=== PATIENT | female | born 1985 | race Caucasian/White ===

== ENCOUNTER 2017-01-03 09:36 | Emergency (ER) | payer OTHER ==
[~2017-01-03] VITALS: Ht 162.6 cm; Wt 60.1 kg
[2017-01-03 09:42] VITALS: TEMP 37.1; Ht 162.6 cm; Wt 60.1 kg
[2017-01-03] MEDS ORDERED: CIPROFLOXACIN 400MG / 200ML D5W IV STA (09:56)
[2017-01-03] MEDS ORDERED: SODIUM CHLORIDE 0.9% 1000ML 1,000 ML IV ONE (10:00)
[2017-01-03] MEDS: ONDANSETRON INJ 2 MG/ML 2 ML VIAL IV PRN ×2 (10:15→11:35)
[2017-01-03] MEDS: MoRPHine SULFATE 10 MG/ML CARP/VIAL IV PRN ×2 (10:17→11:36)
--- NOTE | 2017-01-03 10:17 | EMERGENCY ROOM VISIT NOTE ---
History Report prepared by Tenisha: Hu White Under the Supervision of: Dr. Pio Chang M.D. First contact with patient: 09:51 Chief Complaint: FEVER Stated Complaint: FEVER, BACK/FLANK PAIN History of Present Illness The patient is a 31 year old female who presents to the Emergency Room with complaints of a fever that began yesterday. When taking her temperature today, the patient states it was 101.3 F. She notes that it felt much higher last night. She has a past medical history of asymptomatic UTI's that only show symptoms after they progress to pyelonephritis. Along with the fever, she is experiencing generalized abdominal pain, bilateral flank pain, and foul smelling urine. She presented to [facility] this morning, but she was told to go to the ER because her abdominal pain was "abnormal." She has been constipated for the past two days, but notes that this tends to be normal for her. Her menstrual cycle ended yesterday. She denies any headaches or rashes. She has a past medical history of hypertension Source of History: patient Onset: yesterday Position: other (Global) Symptom Intensity: 101.3 F Quality: other (Fever) Timing: waxes/wanes Associated Symptoms: + abdominal pain (RLQ/LLQ), + back pain (Bilateral flank pain), + urinary symptoms (Foul smelling urine), No headache, No rash Review of Systems All systems have been listed, reviewed, and are negative other than those previously mentioned. Please see Additional Medical History Sheet. Past Medical & Surgical Medical Problems: (1) HTN (hypertension) (2) Pyelonephritis Surgical Problems: (1) H/O LEEP Family History Cancer Hypertension Social History Smoking Status: Never Smoker Smokeless Tobacco Use: No Alcohol Use: none Drug Use: none Marital Status: Housing Status: lives with family Current/Historical Medications Scheduled Ciprofloxacin Hcl (Cipro), 1 TAB PO BID Levothyroxine Sodium (Synthroid), 25 MCG PO DAILY Lisinopril (Zestril), 5 MG PO DAILY Scheduled PRN Hydrocodon/Acetaminophen 5MG/300MG (Vicodin (5MG/300MG)), 1-2 TAB PO Q4H PRN for Pain Allergies Coded Allergies: No Known Allergies (Unverified , 01/03/17) Physical Exam Vital Signs Date Time Temp Pulse Resp B/P (MAP) Pulse Ox O2 Delivery O2 Flow Rate FiO2 01/03/17 13:19 93 16 129/86 97 01/03/17 11:38 97 14 117/79 98 Room Air 01/03/17 09:42 37.1 100 18 122/91 98 Room Air Physical Exam GENERAL: Patient awake, alert, oriented x 3. Patient appears to be in mild to moderate distress. Patient follows commands. Patient does not appear toxic. Patient is adequately hydrated and well-nourished. SKIN: No erythema, pallor, cyanosis or rash HEENT: Normal head, pupils equal, reactive to light and accommodation. LUNGS: Clear to auscultation. No wheezes, no rales, no rhonchi. HEART: No murmurs. No gallops. No rubs ABDOMEN: Generalized tenderness that is most prominent over the left CVA area. No masses, no rebound, no hepatomegaly or splenomegaly. EXTREMITIES: No signs of trauma. No pedal or pretibial edema. No calf or thigh tenderness. NEUROLOGIC: Cranial nerves II-XII within normal limits. No gross motor sensory function deficits. Medical Decision & Procedures ER Provider Diagnostic Interpretation: Radiology results as stated below per my review and radiologist interpretation: ABDOMEN AND PELVIS CT WITHOUT CONTRAST CT DOSE: 578.40 mGy.cm HISTORY: left flank pain TECHNIQUE: Multiaxial CT images of the abdomen and pelvis were performed without the use of intravenous and oral contrast according to the standard department stone protocol. A dose lowering technique was utilized adhering to the principles of ALARA. COMPARISON STUDY: None. FINDINGS: The lung bases are clear. No fractures within the visualized osseous structures. The unenhanced liver, gallbladder, spleen, pancreas, and adrenal glands are within normal limits. Normal right kidney. Mild left perinephric fat stranding/edema. Mild fullness within the left renal collecting system and left ureter without paris hydronephrosis. No renal or ureteral stones identified. No retroperitoneal lymphadenopathy. No bowel wall thickening or obstruction. The bladder, uterus, and bilateral adnexa are unremarkable. Normal appendix. IMPRESSION: 1. Mild left perinephric fat stranding/edema. This favors a pyelonephritis. There is mild fullness within the left renal collecting system without paris hydronephrosis. Therefore, this could also represent a recently passed stone. Recommend correlation with urinalysis. 2. No renal or ureteral calculi. Electronically signed by: Jackson Frnaces M.D. 01/03/2017 12:09 PM Dictated Date/Time: 01/03/2017 12:02 PM Laboratory Results 01/03/17 10:15 Red Blood Count 4.72, Mean Corpuscular Volume 88.6, Mean Corpuscular Hemoglobin 29.2, Mean Corpuscular Hemoglobin Concent 33.0, Mean Platelet Volume 10.8, Neutrophils (%) (Auto) 81.3, Lymphocytes (%) (Auto) 8.5, Monocytes (%) (Auto) 10.0, Eosinophils (%) (Auto) 0.0, Basophils (%) (Auto) 0.1, Neutrophils # (Auto ) 9.14, Lymphocytes # (Auto) 0.96, Monocytes # (Auto) 1.12, Eosinophils # (Auto ) 0.00, Basophils # (Auto) 0.01 01/03/17 10:15 Test 01/03/17 10:15 01/03/17 10:30 White Blood Count 11.24 K/uL (4.8-10.8) Red Blood Count 4.72 M/uL (4.2-5.4) Hemoglobin 13.8 g/dL (12.0-16.0) Hematocrit 41.8 % (37-47) Mean Corpuscular Volume 88.6 fL (80-100) Mean Corpuscular Hemoglobin 29.2 pg (25-34) Mean Corpuscular Hemoglobin Concent 33.0 g/dl (32-36) Platelet Count 209 K/uL (130-400) Mean Platelet Volume 10.8 fL (7.4-10.4) Neutrophils (%) (Auto) 81.3 % Lymphocytes (%) (Auto) 8.5 % Monocytes (%) (Auto) 10.0 % Eosinophils (%) (Auto) 0.0 % Basophils (%) (Auto) 0.1 % Neutrophils # (Auto) 9.14 K/uL (1.4-6.5) Lymphocytes # (Auto) 0.96 K/uL (1.2-3.4) Monocytes # (Auto) 1.12 K/uL (0.11-0.59) Eosinophils # (Auto) 0.00 K/uL (0-0.5) Basophils # (Auto) 0.01 K/uL (0-0.2) RDW Standard Deviation 42.5 fL (36.4-46.3) RDW Coefficient of Variation 12.9 % (11.5-14.5) Immature Granulocyte % (Auto) 0.1 % Immature Granulocyte # (Auto) 0.01 K/uL (0.00-0.02) Anion Gap 10.0 mmol/L (3-11) Est Creatinine Clear Calc Drug Dose 103.9 ml/min Estimated GFR () 136.3 Estimated GFR (Non- 117.6 BUN/Creatinine Ratio 11.3 (10-20) Calcium Level 8.9 mg/dl (8.5-10.1) Urine Color YELLOW Urine Appearance CLEAR (CLEAR) Urine pH 6.0 (4.5-7.5) Urine Specific [place] 1.009 (1.000-1.030) Urine Protein NEG (NEG) Urine Glucose (UA) NEG (NEG) Urine Ketones 1+ (NEG) Urine Occult Blood NEG (NEG) Urine Nitrite NEG (NEG) Urine Bilirubin NEG (NEG) Urine Urobilinogen NEG (NEG) Urine Leukocyte Esterase NEG (NEG) Laboratory results as stated above per my review. Medications Administered Medications (Trade) Dose Ordered Sig/Sukhdeep Route Start Time Stop Time Status Last Admin Dose Admin Morphine Sulfate (MoRPHine SULFATE INJ) 6 mg Q1H PRN IV 01/03/17 10:00 01/03/17 13:34 DC 01/03/17 11:36 6 MG Ondansetron HCl (Zofran Inj) 4 mg Q1HWA PRN IV 01/03/17 10:00 01/03/17 13:34 DC 01/03/17 11:35 4 MG Ciprofloxacin/ Dextrose (Cipro / D5W) 400 mg NOW STAT IV 01/03/17 09:56 01/03/17 10:02 DC 01/03/17 10:30 400 MG Sodium Chloride 1,000 ml @ 1,000 mls/hr Q1H ONCE IV 01/03/17 10:00 01/03/17 10:59 DC 01/03/17 10:19 1,000 MLS/HR ED Course 0951: Past medical records reviewed. The patient was evaluated in room A9B. A complete history and physical examination was performed. 0956: Ordered Cipro / D5W 400 mg IV 1000: Ordered Sodium Chloride 1000 ml @ 1000 mls/hr IV, Zofran Inj 4 mg IV, Morphine Sulfate 6 mg IV 1105: I reevaluated the patient at this time. We will be giving her a CT scan. 1316: Upon reevaluation, the patient appeared to have improvement of her symptoms. I discussed today's findings with her. She verbalized agreement of the treatment plan. She was discharged home. Medical Decision Differential diagnoses considered include UTI, pyelonephritis, kidney stones, and sepsis. The patient is here with urinary symptoms similar to what she has had in the past with pyelonephritis. The patient had a urinalysis performed this morning at an urgent care center revealing blood, protein, ketones and moderate leukocyte esterase. The patient did drink a couple bottles of water just prior to arrival here. Urinalysis here shows only ketones. Specific gravity is much less. In light of her history and clinical findings she was started on ciprofloxacin. CT was added when the diagnosis became unclear. White count is slightly elevated. CT is most consistent with pyelonephritis. No stone was found. The patient will be sent home on Cipro and Vicodin. The patient was encouraged to continue pushing fluids. [place] Drug Monitoring Program Search Results: patient reviewed within database, no issues identified Medication Reconcilliation Current Medication List: was personally reviewed by me Blood Pressure Screening Patient's blood pressure: Normal blood pressure Blood pressure disposition: Did not require urgent referral Impression Primary Impression: Acute pyelonephritis Scribe Attestation The scribe's documentation has been prepared under my direction and personally reviewed by me in its entirety. I confirm that the note above accurately reflects all work, treatment, procedures, and medical decision making performed by me. Departure Information Dispostion Home / Self-Care Prescriptions Hydrocodon/Acetaminophen 5MG/300MG (VICODIN (5MG/300MG)) 1 Tab Tab 1-2 TAB PO Q4H Y for Pain, #12 TAB Prov: Pio Chang M.D. 01/03/17 Ciprofloxacin Hcl (CIPRO) 500 Mg Tab 1 TAB PO BID for 10 Days, #20 TAB Prov: Pio Chang M.D. 01/03/17 Referrals No Doctor, Assigned (PCP) Forms HOME CARE DOCUMENTATION FORM, IMPORTANT VISIT INFORMATION Patient Instructions Ciprofloxacin tablets, My [facility], Pyelonephritis Dc Additional Instructions One Cipro twice a day for 10 days. 1-2 Vicodin every 4 hours as needed for moderate to severe pain. Do not drive or operate machinery while taking Vicodin. Drink extra fluids. Have your urine rechecked within the next 2 weeks.
[2017-01-03] MEDS ORDERED: LEVO25TA PO (10:19)
[2017-01-03] MEDS ORDERED: LISI-729 PO (10:19)
[2017-01-03 10:32] LABS: BASO % 0.1 %; BASO ABS # 0.01 K/uL (0-0.2); COMPLETE YES; HEMATOCRIT 41.8 % (37-47); IG% 0.1 %; LYMPH % 8.5 %; LYMPH ABS # 0.96 K/uL (1.2-3.4); MEAN CELL VOLUME 88.6 fL (80-100); MEAN CORPUSCULAR HEMOGLOBIN 29.2 pg (25-34); MEAN PLATELET VOLUME 10.8 fL (7.4-10.4); NEUT % 81.3 %; PLATELET COUNT 209 K/uL (130-400); RED BLOOD COUNT 4.72 M/uL (4.2-5.4); WHITE BLOOD COUNT 11.24 K/uL (4.8-10.8)
[2017-01-03 10:50] LABS: BUN/CREATININE RATIO 11.3 (10-20); CALCIUM 8.9 mg/dl (8.5-10.1); CREATININE 0.69 mg/dl (0.60-1.20); POTASSIUM 3.5 mmol/L (3.5-5.1)
[2017-01-03 10:53] LABS: URINE APPEARANCE CLEAR (CLEAR); URINE BILIRUBIN NEG (NEG); URINE COLOR YELLOW; URINE NITRITE NEG (NEG); URINE SPECIFIC GRAVITY 1.009 (1.000-1.030); UROBILINOGEN NEG (NEG); ZZUR CULT IF INDIC CLEAN CATCH NO
[2017-01-03 10:56] LABS: MANUAL MICROSCOPIC REQUIRED? NO; REVIEW REQ? NO
--- NOTE | 2017-01-03 12:10 | DIAGNOSTIC IMAGING REPORT ---
ABDOMEN AND PELVIS CT WITHOUT CONTRAST CT DOSE: 578.40 mGy.cm HISTORY: left flank pain TECHNIQUE: Multiaxial CT images of the abdomen and pelvis were performed without the use of intravenous and oral contrast according to the standard department stone protocol. A dose lowering technique was utilized adhering to the principles of ALARA. COMPARISON STUDY: None. FINDINGS: The lung bases are clear. No fractures within the visualized osseous structures. The unenhanced liver, gallbladder, spleen, pancreas, and adrenal glands are within normal limits. Normal right kidney. Mild left perinephric fat stranding/edema. Mild fullness within the left renal collecting system and left ureter without paris hydronephrosis. No renal or ureteral stones identified. No retroperitoneal lymphadenopathy. No bowel wall thickening or obstruction. The bladder, uterus, and bilateral adnexa are unremarkable. Normal appendix. IMPRESSION: 1. Mild left perinephric fat stranding/edema. This favors a pyelonephritis. There is mild fullness within the left renal collecting system without paris hydronephrosis. Therefore, this could also represent a recently passed stone. Recommend correlation with urinalysis. 2. No renal or ureteral calculi. Electronically signed by: Jackson Frances M.D. 01/03/2017 12:09 PM Dictated Date/Time: 01/03/2017 12:02 PM
[2017-01-03] MEDS ORDERED: HYDR-3419 PO (13:08)
[2017-01-03] MEDS ORDERED: CIPR-255 PO (13:08)
[2017-01-03 13:19] VITALS: BP 129/86; PULSE 93; O2SAT 97
== END 2017-01-03 13:19 | disposition home or self-care (01) ==
LOC: C.EDB 09:38 → C.EDA 13:19
DX: N10 Acute pyelonephritis (principal); I10 Essential (primary) hypertension; Z87.440 Personal history of urinary (tract) infections; Z98.890 Other specified postprocedural states; Z82.49 Family history of ischemic heart disease and other diseases of the circulatory system; Z79.899 Other long term (current) drug therapy